=== PATIENT | female | born 1995 | race Caucasian/White ===

== ENCOUNTER 2020-04-13 17:44 | Emergency (ER) | payer MEDICAID, SELFPAY ==
--- NOTE | ~2020-04-13 | US_ITS ---
EXAMINATION: US pelvic complete w TV DATE: 04/13/2020 21:12 INDICATION: Left lower quadrant pain TECHNIQUE: Multiple transabdominal and endovaginal sonographic images of the pelvis were obtained. COMPARISON: None. FINDINGS: The uterus measures 7 x 4.6 x 3.5 cm. The endometrial complex measures 3 mm. The right ovar y measures 2.6 x 2.1 x 2.1 cm. The left ovary measures 3.2 x 2.2 x 2.0 cm. There is normal vascular f low in the ovaries. There is no free fluid in the pelvis. IMPRESSION: 1. No sonographic correlate for the patient's symptoms. Reviewed, dictated and finalized at location A. STRIAL RELATIONS SPECIALIST
[2020-04-13 18:05] VITALS: BP 107/90; PULSE 77; RESP 16; TEMP 36.2; O2SAT 100
[2020-04-13 19:31] VITALS: BP 121/89; O2SAT 100
--- NOTE | 2020-04-13 19:44 | ED.ABDPAIN ---
HPI - Abdominal Pain General Chief Complaint: Abdominal Pain Stated Complaint: abd pain Time Seen by Provider: 04/13/20 19:35 Source: patient Mode of arrival: ambulatory Limitations: no limitations History of Present Illness HPI narrative: This is a 24 year old female that presents to the ER for left sided pelvic pain since yesterday. Reports she started her cycle yesterday. Reports she has had cramping on the left side of her pelvis. Denies fever, nausea, vomiting, or dysuria. Related Data Allergies Allergy/AdvReac Type Severity Reaction Status Date / Time No Known Allergies Allergy Unverified 06/08/18 09:04 Review of Systems Review of Systems: Narrative: CONSTITUTIONAL: Denies fever GASTROINTESTINAL: Reports abdominal/pelvic pain. Denies nausea, vomiting, or diarrhea. GENITOURINARY: Denies dysuria or hematuria. SKIN: Denies rash All systems reviewed & are unremarkable except as noted in HPI and below PMFSH Past Medical History Medical History (Updated 04/13/20 @ 21:47 by Patricia Jones PA-C) History of bipolar disorder Social History Social History (Updated 04/13/20 @ 19:47 by Patricia Jones PA-C) Smoking status: Former smoker Gender identity (if verbalized by the patient): Female Exam Narrative: Exam Narrative: GENERAL: Well-appearing, well-nourished, and in no acute distress. HEAD: Normocephalic, atraumatic. EYES: EOMI. CHEST: Clear to auscultation. No respiratory distress. No wheezes rales or rhonchi HEART: Regular rate and rhythm. No murmur heard. Normal peripheral pulses. ABDOMEN: Soft, nondistended, normal active bowel sounds. Tender to palpation in the left lower quadrant, without guarding. No CVA tenderness EXTREMITIES: Normal range of motion. No edema. SKIN: Warm, dry, no rash. NEURO: No focal deficits. Alert and oriented x3. PSYCH: Normal mood and affect PELVIC: Normal external genitalia. Normal-appearing cervix, no cervical motion tenderness. Small amount of blood in the vaginal vault Course Vital Signs Vital signs: Vital Signs Temperature 97.1 F L 04/13/20 18:05 Pulse Rate 77 04/13/20 18:05 Respiratory Rate 16 04/13/20 18:05 Blood Pressure 107/90 04/13/20 18:05 Pulse Oximetry 100 04/13/20 18:05 Temperature 97.1 F L 04/13/20 18:05 Pulse Rate 77 04/13/20 18:05 Respiratory Rate 16 04/13/20 18:05 Blood Pressure 121/89 04/13/20 19:31 Pulse Oximetry 100 04/13/20 19:31 MDM - Abdominal Pain MDM Narrative Medical decision making narrative: Patient presents emergency department for left-sided pelvic pain since yesterday. She is afebrile and nontoxic-appearing. CBC is without leukocytosis. Metabolic panel without concerning findings. Bedside test is negative. UA with possible evidence of infection although this is not a clean-catch. This will be sent for culture. Trichomonas is negative. Chlamydia and gonorrhea are sent. No acute findings on pelvic exam. Pelvic ultrasound is also without acute abnormalities. Normal vascular flow to the ovaries. Patient was updated on case findings. Would like to be presumptively treated for chlamydia and gonorrhea. She is stable and felt appropriate for the outpatient evaluation. Was instructed to follow-up with her low vision therapist. She was given warnings to return to the ER Lab Data Attestation: I reviewed the patient's lab results. Result diagrams: 04/13/20 19:50 04/13/20 19:50 Labs: Lab Results 04/13/20 04/13/20 04/13/20 Range/Units 19:50 19:50 19:50 WBC 7.3 (4.5-10.0) K/mm3 RBC 4.33 (4.2-5.4) M/mm3 Hgb 13.7 (12.0-15.0) g/dL Hct 40.1 (37.0-47.0) % MCV 92.6 (80-100) fl MCH 31.6 (26-34) pg MCHC 34.2 (32-36) g/dl RDW 11.9 (11.5-14.5) % Plt Count 212 (150-375) k/mm3 MPV 11.1 H (7.4-10.4) fl Immature Gran % (Auto) 0.4 (0-0.5) % Neut % (Auto) 65.2 (45.5-73.1) % Lymph % (Auto) 24.8 (18.3-44.2) % [place] %
[2020-04-13 19:58] LABS: Basophils Percent Auto 0.6 % (0.2-1.2); Eosinophils Absolute Auto 0.1 K/mm3 (0-0.3); Eosinophils Percent Auto 1.1 % (0-4.4); Hematocrit 40.1 % (37.0-47.0); Hemoglobin 13.7 g/dL (12.0-15.0); Immature Granulocyte Absolute 0.03 K/mm3 (0.00-0.031); Immature Granulocyte Percent A 0.4 % (0-0.5); Lymphocytes Percent Auto 24.8 % (18.3-44.2); Mean Corpuscular HGB Conc 34.2 g/dl (32-36); Mean Corpuscular Hemoglobin 31.6 pg (26-34); Mean Corpuscular Volume 92.6 fl (80-100); Mean Platelet Volume 11.1 fl (7.4-10.4); Monocytes Absolute Auto 0.6 K/mm3 (0.1-0.6); Monocytes Percent Auto 7.9 % (2.6-8.5); Neutrophils Absolute Auto 4.7 K/mm3 (1.3-6.7); Neutrophils Percent Auto 65.2 % (45.5-73.1); Platelet Count Result 212 k/mm3 (150-375); Red Blood Count 4.33 M/mm3 (4.2-5.4); Red Cell Distribution Width 11.9 % (11.5-14.5); White Blood Count 7.3 K/mm3 (4.5-10.0)
[2020-04-13 20:02] LABS: Add Urine Microscopic? YES; Amorphous Sediment Urine Few; Appearance Urine Cloudy (Clear); Bilirubin Urine Negative (Negative); Blood Urine 3+ (Negative); Glucose Urine UA Negative (Negative); Ketones Urine Negative (Negative); Leukocyte Esterase Ur 1+ LEU/UL (Negative); Nitrate Urine Negative (Negative); Protein Urine 1+ mg/dL (Negative); Specific Grav Ur 1.029 (1.001-1.035); Squamous Epithelial Cell Urine Many /hpf (Few); Urobilinogen Urine Negative mg/dL (<2.0); WBC Urine 21-30 /hpf
[2020-04-13 20:03] LABS: Color Urine Yellow (Yellow)
[2020-04-13 20:10] LABS: Alanine Aminotransferase 15 U/L (4-35); Albumin Level 4.6 g/dL (3.5-5.1); Alkaline Phosphatase 49 U/L (38-126); Anion Gap 5 mmol/L (8-16); Aspartate Amino Transferase 26 U/L (14-36); Bilirubin,Total 0.4 mg/dL (0.2-1.3); Blood Urea Nitrogen 13 mg/dL (7-17); Calcium 9.6 mg/dL (8.4-10.2); Carbon Dioxide 30 mmol/L (22-30); Chloride 102 mmol/L (98-107); Estimated CRCL calculation 122 ml/min; Estimated Glomerular Filt Rate > 60; Glucose 94 mg/dL (65-105); Lipase 105 U/L (23-300); Sodium 137 mmol/L (137-145)
[2020-04-13 20:26] LABS: Beta HCG Quantitative < 2.39 mIU/ML
[2020-04-13] MEDS: DOXYCYCLINE HYCLATE 100 MG TABLET PO (22:16)
--- NOTE | 2020-04-13 22:16 | PC.NURSE ---
vrbo to give pt 1gm rocephin iv x1 from abel jimenez
[2020-04-13 22:18] VITALS: BP 132/84; PULSE 84; RESP 18; O2SAT 98
== END 2020-04-13 22:19 | disposition home or self-care (01) ==
PROVIDERS: Physician Assistant; Emergency Provider Emergency Medicine
DX: N30.01 Acute cystitis with hematuria (principal); R10.2 Pelvic and perineal pain; Z87.891 Personal history of nicotine dependence
CPT/HCPCS: 36415; 76830; 76856; 80053; 81001; 81025; 83690; 84702; 85025; 87070; 87086; 87088; 87491; 87591; 87808; 96374; 96375; 99284; A9270; J0131; J0696

== ENCOUNTER 2020-06-01 22:33 | Emergency (ER) | payer BC, SELFPAY ==
--- NOTE | ~2020-06-01 | CT_ITS ---
EXAMINATION: CT abdomen pelvis w con DATE: 06/02/2020 00:54 INDICATION: Abdominal pain. TECHNIQUE: Computed tomography (CT) of the abdomen and pelvis was performed with 100 mL Omnipaque 350 intravenous contrast. Automated exposure control and iterative reconstruction technique were employe d. The dose-length product was 221.35 mGy-cm. COMPARISON: None. FINDINGS: The visualized portions of the lung bases are clear without pneumonia or pleural effusion. The heart size is normal. No pericardial effusion. The liver, gallbladder, spleen, pancreas, adrenal glands, and right kidney are normal. There is a 4 mm cyst in left kidney. There are no dilated loops of bowel. The appendix is normal. There is trace pelvic ascites, likely physiologic. There are no pat hologically enlarged lymph nodes. There is dextrocurvature of thoracolumbar spine. IMPRESSION: 1. No etiology for the patient's symptoms. Reviewed, dictated and finalized at location A. Y EQUIPMENT SERVICE MANAGER
[2020-06-01 22:35] VITALS: BP 119/79; PULSE 91; RESP 20; TEMP 36.1; O2SAT 100
[2020-06-01 22:50] VITALS: BP 128/77; PULSE 79; RESP 18; O2SAT 100
[2020-06-02] VITALS: BP 124/77; PULSE 80; RESP 18; O2SAT 100
[2020-06-02 00:14] LABS: Prothrombin Time 13.6 Seconds (11.1-14.7)
[2020-06-02 00:15] LABS: Alanine Aminotransferase 14 U/L (4-35); Albumin Level 4.7 g/dL (3.5-5.1); Alkaline Phosphatase 45 U/L (38-126); Anion Gap 7 mmol/L (8-16); Aspartate Amino Transferase 19 U/L (14-36); Bilirubin,Total 0.3 mg/dL (0.2-1.3); Blood Urea Nitrogen 11 mg/dL (7-17); Calcium 9.4 mg/dL (8.4-10.2); Carbon Dioxide 28 mmol/L (22-30); Chloride 105 mmol/L (98-107); Estimated CRCL calculation 103 ml/min; Estimated Glomerular Filt Rate > 60; Glucose 84 mg/dL (65-105); Lipase 151 U/L (23-300); Partial Thromboplastin Time 29.3 SECONDS (22.3-36.8); Potassium 3.7 mmol/L (3.4-5.0); Sodium 140 mmol/L (137-145)
[2020-06-02 00:20] LABS: Basophils Percent Auto 0.4 % (0.2-1.2); Eosinophils Percent Auto 0.5 % (0-4.4); Hematocrit 40.7 % (37.0-47.0); Hemoglobin 13.8 g/dL (12.0-15.0); Immature Granulocyte Absolute 0.05 K/mm3 (0.00-0.031); Immature Granulocyte Percent A 0.6 % (0-0.5); Lymphocytes Absolute Auto 2.06 K/mm3 (0.9-3.2); Lymphocytes Percent Auto 26.7 % (18.3-44.2); Mean Corpuscular HGB Conc 33.9 g/dl (32-36); Mean Corpuscular Hemoglobin 30.8 pg (26-34); Mean Corpuscular Volume 90.8 fl (80-100); Mean Platelet Volume 11.5 fl (7.4-10.4); Monocytes Absolute Auto 0.7 K/mm3 (0.1-0.6); Monocytes Percent Auto 8.7 % (2.6-8.5); Neutrophils Absolute Auto 4.9 K/mm3 (1.3-6.7); Neutrophils Percent Auto 63.1 % (45.5-73.1); Platelet Count Result 198 k/mm3 (150-375); Red Blood Count 4.48 M/mm3 (4.2-5.4); Red Cell Distribution Width 11.6 % (11.5-14.5); White Blood Count 7.7 K/mm3 (4.5-10.0)
[2020-06-02] MEDS: SODIUM CHLORIDE 0.9% IV 1,000 ML 999 ML IV CONT (00:28)
[2020-06-02 01:31] VITALS: BP 120/80; PULSE 71; RESP 16; O2SAT 100
--- NOTE | 2020-06-02 02:32 | ED.GENADULT ---
HPI - General Adult General Chief complaint: GI Bleed Stated complaint: bloody stool Time Seen by Provider: 06/01/20 23:17 History of Present Illness HPI narrative: Patient is a 22-year-old female presents the emergency department chief complaint of rectal bleeding. Patient reports that she has noticed over the last several days that she has had some blood mixed in with her stool. Patient reports a little bit of diarrhea with this denies abdominal pain. Patient has noticed at times her stool can be fairly hard the patient reports that she had some prior issues with this before in the past but has not seen a safety fire boss or had further evaluation. Related Data Allergies Allergy/AdvReac Type Severity Reaction Status Date / Time No Known Allergies Allergy Unverified 06/08/18 09:04 Review of Systems Review of Systems: Narrative: A 10 system review of systems was completed on the patient and is negative except for what is stated in the HPI. Nursing and ancillary documentation was reviewed. [facility] Past Medical History Medical History History of bipolar disorder Social History Social History Smoking status: Former smoker Gender identity (if verbalized by the patient): Female Exam Narrative: Exam Narrative: GENERAL: Well-appearing, well-nourished, and in no acute distress. HEAD: Normocephalic, atraumatic. EYES: PERRLA and EOMI. ENT: Nares clear, no rhinorrhea or epistaxis. Mucous membranes moist. NECK: Supple. CHEST: Clear to auscultation. No respiratory distress. HEART: Regular rate and rhythm. No murmur heard. Normal peripheral pulses. ABDOMEN: Soft, nontender, nondistended, normal active bowel sounds. EXTREMITIES: Normal range of motion. No edema. : Stool is guaiac positive SKIN: Warm, dry, no rash. NEURO: No focal deficits. Alert and oriented x3. PSYCH: Normal mood and affect. Course Vital Signs Vital signs: Vital Signs Temperature 36.1 C L 06/01/20 22:35 Pulse Rate 91 06/01/20 22:35 Respiratory Rate 20 06/01/20 22:35 Blood Pressure 119/79 06/01/20 22:35 Pulse Oximetry 100 06/01/20 22:35 Temperature 36.1 C L 06/01/20 22:35 Pulse Rate 71 06/02/20 01:31 Respiratory Rate 16 06/02/20 01:31 Blood Pressure 120/80 06/02/20 01:31 Pulse Oximetry 100 06/02/20 01:31 Medical Decision Making Vital Signs Vital Signs: Vital Signs Temperature 36.1 C L 06/01/20 22:35 Pulse Rate 91 06/01/20 22:35 Respiratory Rate 20 06/01/20 22:35 Blood Pressure 119/79 06/01/20 22:35 Pulse Oximetry 100 06/01/20 22:35 Temperature 36.1 C L 06/01/20 22:35 Pulse Rate 71 06/02/20 01:31 Respiratory Rate 16 06/02/20 01:31 Blood Pressure 120/80 06/02/20 01:31 Pulse Oximetry 100 06/02/20 01:31 Lab Data Result diagrams: 06/01/20 23:57 06/01/20 23:57 Labs: Lab Results 06/01/20 06/01/20 06/01/20 Range/Units 23:57 23:57 23:57 WBC 7.7 (4.5-10.0) K/mm3 RBC 4.48 (4.2-5.4) M/mm3 Hgb 13.8 (12.0-15.0) g/dL Hct 40.7 (37.0-47.0) % MCV 90.8 (80-100) fl MCH 30.8 (26-34) pg MCHC 33.9 (32-36) g/dl RDW 11.6 (11.5-14.5) % Plt Count 198 (150-375) k/mm3 MPV 11.5 H (7.4-10.4) fl Immature Gran % (Auto) 0.6 H (0-0.5) % Neut % (Auto) 63.1 (45.5-73.1) % Lymph % (Auto) 26.7 (18.3-44.2) % [place] % (Auto) 8.7 H (2.6-8.5) % Eos % (Auto) 0.5 (0-4.4) % Baso % (Auto) 0.4 (0.2-1.2) % Lymph # (Auto) 2.06 (0.9-3.2) K/mm3 [place] # (Auto) 0.7 H (0.1-0.6) K/mm3 Eos # (Auto) 0.0 (0-0.3) K/mm3 Baso # (Auto) 0.0 (0.0-0.1) K/mm3 Abs Immat Gran (auto) 0.05 H (0.00-0.031) K/mm3 Absolute Neuts (auto) 4.9 (1.3-6.7) K/mm3 Absolute Nucleated RBC 0.0 (0.0-0.012) K/mm3 Nucleated RBC % 0.0 (0.0-0.2) % PT 13.6 (11.1-14.7)
[2020-06-02 02:53] VITALS: BP 114/72; PULSE 79; RESP 14; O2SAT 100
== END 2020-06-02 02:54 | disposition home or self-care (01) ==
PROVIDERS: Emergency Provider Emergency Medicine
DX: K62.5 Hemorrhage of anus and rectum (principal); Z87.891 Personal history of nicotine dependence
CPT/HCPCS: 36415; 74177; 80053; 81025; 83690; 85025; 85610; 85730; 96360; 99284; J7030; Q9967

== ENCOUNTER 2022-07-10 09:30 | Emergency (ER) | payer SELFPAY ==
--- NOTE | 2022-07-10 10:04 | ED.FEMALEGU ---
HPI - Female Genitourinary General Chief complaint: Urogenital-Female Stated complaint: STD testing, diarrhea x 4 days Time Seen by Provider: 07/10/22 09:43 Source: patient Mode of arrival: ambulatory Limitations: no limitations History of Present Illness HPI Narrative: Patient is a 26 y/o female who presents to the ED with c/o concern for STDs. Patient reports she had sexual intercourse with a partner who was noted to have chlamydia and trichomonas. She reports having intercourse with him on 2 separate occasions, most recently a couple of weeks ago. Starting this Thursday, patient began developing abnormal vaginal discharge, thick, white, increased amount. Somewhat malodorous. She also reports having diarrhea intermittently. Patient would like to be tested and treated for STDs. Denies any dysuria, hematuria, vaginal bleeding, abdominal pain, nausea, vomiting, fevers, rectal bleeding, melena. Related Data Home Medications Medication Instructions Recorded Confirmed aripiprazole 15 mg tablet mg 07/10/22 hydroxyzine HCl 25 mg tablet 25 mg PO DAILY 07/10/22 trazodone 100 mg tablet 100 mg PO HS 07/10/22 Allergies Allergy/AdvReac Type Severity Reaction Status Date / Time muscle relaxer Allergy Seizure Uncoded 07/10/22 09:34 Review of Systems Review of Systems: CONSTITUTIONAL: Denies fever, chills, or sweats. CARDIOVASCULAR: Denies chest pain. RESPIRATORY: Denies dyspnea. GASTROINTESTINAL: See HPI. GENITOURINARY: See HPI. SKIN: Denies rash or itching. All systems reviewed & are unremarkable except as noted in HPI and below PMFSH Past Medical History Medical History History of bipolar disorder Surgical History Surgical History No pertinent past surgical history Social History Social History Smoking status: Former smoker Gender identity (if verbalized by the patient): Female Exam Narrative: GENERAL: Well appearing, well-nourished, non-toxic, in no acute distress. HEAD: Normocephalic, atraumatic. NECK: Supple. No adenopathy, no masses. RESPIRATORY: Airway patent, respirations nonlabored. Clear to auscultation bilaterally, no rales, rhonchi, wheezing. CARDIOVASCULAR: Regular rate and rhythm without murmurs, rubs, or gallops. Radial pulses 2+ and equal bilaterally. ABDOMINAL: Soft, no tenderness throughout abdomen, nondistended, no hepatosplenomegaly. Normoactive BS. PELVIC: Normal external genitalia. No genital lesions. Friable cervix, os closed, otherwise normal appearing. Mild amount of thick white vaginal discharge, no significant odor. No bleeding. No significant CMT. MUSCULOSKELETAL: Moves all extremities. Strength/ROM intact without gross deformities. SKIN: Warm, dry, normal color. No rashes. NEURO: A&O X3. Speech clear. Cranial nerves II-XII grossly intact. Steady gait. No ataxic movements. PSYCHIATRIC: Appropriate mood and affect. Normal interaction. Course Vital Signs Vital signs: Vital Signs Respiratory Rate 16 07/10/22 10:13 Blood Pressure 110/75 07/10/22 10:13 Pulse Oximetry 96 07/10/22 10:13 Oxygen Delivery Room Air 07/10/22 10:13 Temperature 97.6 F 07/10/22 10:50 Pulse Rate 67 07/10/22 12:18 Respiratory Rate 16 07/10/22 12:18 Blood Pressure 111/74 07/10/22 12:18 Pulse Oximetry 100 07/10/22 12:18 Oxygen Delivery Room Air 07/10/22 10:13 MDM - Female Genitourinary MDM Narrative Medical decision making narrative: Patient presented to ED with exposure to STDs. Wanting to be tested and treated. Pelvic exam performed and notable for thick white vaginal discharge, no other significant abnormalities. Patient without any abdominal tenderness on exam. No systemic signs of infection. UA consistent with infection as well, 2+ leuk esterase, 51-100 WBC. Sent for culture. Swabs
[2022-07-10 10:13] VITALS: BP 110/75; RESP 16; O2SAT 96
[2022-07-10] MEDS: metroNIDAZOLE 250 MG TABLET 500 MG PO (10:40)
[2022-07-10] MEDS: DOXYCYCLINE HYCLATE 100 MG TABLET PO (10:40)
[2022-07-10] MEDS: cefTRIAXone 1 GM VIAL 0.5 GM IM (10:41)
[2022-07-10] MEDS: LIDOCAINE HCL 1% LOCAL INJ 10 ML VIAL (10:45)
[2022-07-10 10:50] VITALS: BP 110/75; PULSE 82; RESP 16; TEMP 36.4; O2SAT 98
[2022-07-10 11:02] LABS: Appearance Urine Cloudy (Clear); Bacteria Urine Rare /hpf; Bilirubin Urine Negative (Negative); Blood Urine Negative (Negative); Color Urine Yellow (Yellow); Glucose Urine UA Negative (Negative); Ketones Urine Negative (Negative); Leukocyte Esterase Ur 2+ LEU/UL (Negative); Nitrate Urine Negative (Negative); Non Pathogenic Casts 0-2; Protein Urine Negative (Negative); RBC Urine 0-2 /hpf (0-2); Specific Grav Ur 1.023 (1.001-1.035); Squamous Epithelial Cell Urine Occasional /hpf (Few); Urobilinogen Urine 0.2 mg/dL (<2.0); WBC Urine 51-100 /hpf
[2022-07-10 12:01] LABS: Add Urine Microscopic? YES
[2022-07-10 12:18] VITALS: BP 111/74; PULSE 67; RESP 16; O2SAT 100
== END 2022-07-10 12:26 | disposition home or self-care (01) ==
PROVIDERS: Emergency Provider Physician Assistant; PCP Physician Assistant
DX: Z20.2 Contact with and (suspected) exposure to infections with a predominantly sexual mode of transmission (principal); N30.00 Acute cystitis without hematuria; F31.9 Bipolar disorder, unspecified; Z87.891 Personal history of nicotine dependence
CPT/HCPCS: 81001; 81025; 87070; 87086; 87088; 87491; 87591; 87808; 96372; 99284; A9270; J0696

== ENCOUNTER 2022-07-16 01:01 | Emergency (ER) | payer SELFPAY ==
--- NOTE | 2022-07-16 01:25 | ED.GENADULT ---
HPI - General Adult General Chief complaint: Abdominal Pain Stated complaint: vomiting Time Seen by Provider: 07/16/22 01:13 History of Present Illness HPI narrative: This is a 26-year-old female presenting ED with chief complaint of nausea vomiting diarrhea. Her symptoms started at 7:00 p.m. today. She denies fever chills URI symptoms chest pain difficulty breathing or abdominal pain. Patient is on day 5 of STD/UTI treatment. Patient is not taking any medication for vomiting. She has not drink any alcohol. Related Data Home Medications Medication Instructions Recorded Confirmed aripiprazole 15 mg tablet mg 07/10/22 hydroxyzine HCl 25 mg tablet 25 mg PO DAILY 07/10/22 trazodone 100 mg tablet 100 mg PO HS 07/10/22 Allergies Allergy/AdvReac Type Severity Reaction Status Date / Time muscle relaxer Allergy Seizure Uncoded 07/16/22 02:01 [facility] Past Medical History Medical History History of bipolar disorder Surgical History Surgical History No pertinent past surgical history Social History Social History Smoking status: Former smoker Gender identity (if verbalized by the patient): Female Exam Narrative: APPEARANCE: No apparent distress. Head: atraumatic. EYES: EOMI, NOSE: Atraumatic NECK: Trachea midline RESPIRATORY: No increased rate of breathing , clear to auscultation CARDIOVASCULAR: RRR, oral edema ABDOMINAL: Non-distended, soft no guarding or rebound MUSCULOSKELETAl: No obvious deformities NEURO: Alert. Moving 4/4 extremities SKIN:: Warm, dry. Normal color PSYCHIATRIC: Normal affect Medical Decision Making MDM Narrative Medical decision making narrative: -Presentation: 26-year-old female presenting with 6 hours of nausea vomiting diarrhea. -DDX includes but is not limited to: Gastroenteritis, cyclic vomiting, medication side effect, viral syndrome -Co-morbidities complicating care: bipolar treatment, recent gonorrhea infection, UTI -Social determinants of health: patient works at [employer], lives with her aunt -External Chart Review: previous ER records -Hx from independent Sources: none -Discussion of Management/Consultants: none -Independent interpretation of studies: laboratory studies were within normal limits. Urinalysis was not indicative of infection. Dx tests considered but not ordered: None -Procedures: none -Interventions: 2 L normal saline, Haldol, Zofran, Pepcid -Shared decision making / Disposition: upon re-evaluation patient is feeling better. Vital signs are stable. She is tolerating p.o.. She will be discharged with anti-emetics/ PCP follow-up -RX Zofran, Lab Data 07/16/22 01:55 07/16/22 01:55 Labs: Lab Results 07/16/22 Range/Units 01:55 WBC 7.1 (4.5-10.0) K/mm3 RBC 4.16 L (4.2-5.4) M/mm3 Hgb 12.9 (12.0-15.0) g/dL Hct 38.5 (37.0-47.0) % MCV 92.5 (80-100) fl MCH 31.0 (26-34) pg MCHC 33.5 (32-36) g/dl RDW 12.4 (11.5-14.5) % Plt Count 193 (150-375) k/mm3 MPV 11.8 H (7.4-10.4) fl Immature Gran % (Auto) 0.4 (0-0.5) % Neut % (Auto) 81.1 H (45.5-73.1) % Lymph % (Auto) 11.9 L (18.3-44.2) % [place] % (Auto) 5.1 (2.6-8.5) % Eos % (Auto) 0.9 (0-4.4) % Baso % (Auto) 0.6 (0.2-1.2) % Lymph # (Auto) 0.84 L (0.9-3.2) K/mm3 [place] # (Auto) 0.4 (0.1-0.6) K/mm3 Eos # (Auto) 0.1 (0-0.3) K/mm3 Baso # (Auto) 0.0 (0.0-0.1) K/mm3 Abs Immat Gran (auto) 0.03 (0.00-0.031) K/mm3 Absolute Neuts (auto) 5.7 (1.3-6.7) K/mm3 Absolute Nucleated RBC 0.0 (0.0-0.012) K/mm3 Nucleated RBC % 0.0 (0.0-0.2) % Sodium 137 (137-145) mmol/L Potassium 3.8 (3.4-5.0) mmol/L Chloride 104 (98-107) mmol/L Carbon Dioxide 27 (22-30) mmol/L Anion Gap 6 L (8-16) mmol/L BUN 7 (7-17) mg/dL Creatinine
[2022-07-16] MEDS: ONDANSETRON INJ 4 MG/2 ML VIAL 8 MG IV PUSH (02:01)
[2022-07-16] MEDS: FAMOTIDINE 20 MG/2 ML VIAL IV PUSH (02:01)
[2022-07-16] MEDS: SODIUM CHLORIDE 0.9% IV 2,000 ML 999 ML IV CONT (02:02)
[2022-07-16] MEDS: HALOPERIDOL LACTATE 5 MG/ML VIAL IM (02:23)
[2022-07-16 02:26] LABS: Basophils Percent Auto 0.6 % (0.2-1.2); Eosinophils Absolute Auto 0.1 K/mm3 (0-0.3); Eosinophils Percent Auto 0.9 % (0-4.4); Hematocrit 38.5 % (37.0-47.0); Hemoglobin 12.9 g/dL (12.0-15.0); Immature Granulocyte Absolute 0.03 K/mm3 (0.00-0.031); Immature Granulocyte Percent A 0.4 % (0-0.5); Lymphocytes Absolute Auto 0.84 K/mm3 (0.9-3.2); Lymphocytes Percent Auto 11.9 % (18.3-44.2); Mean Corpuscular HGB Conc 33.5 g/dl (32-36); Mean Corpuscular Volume 92.5 fl (80-100); Mean Platelet Volume 11.8 fl (7.4-10.4); Monocytes Absolute Auto 0.4 K/mm3 (0.1-0.6); Monocytes Percent Auto 5.1 % (2.6-8.5); Neutrophils Absolute Auto 5.7 K/mm3 (1.3-6.7); Neutrophils Percent Auto 81.1 % (45.5-73.1); Platelet Count Result 193 k/mm3 (150-375); Red Blood Count 4.16 M/mm3 (4.2-5.4); Red Cell Distribution Width 12.4 % (11.5-14.5); White Blood Count 7.1 K/mm3 (4.5-10.0)
[2022-07-16 02:35] LABS: Alanine Aminotransferase 24 U/L (6-35); Albumin Level 4.3 g/dL (3.5-5.1); Alkaline Phosphatase 38 U/L (38-126); Anion Gap 6 mmol/L (8-16); Aspartate Amino Transferase 25 U/L (14-36); Bilirubin,Total 0.5 mg/dL (0.2-1.3); Blood Urea Nitrogen 7 mg/dL (7-17); Calcium 9.2 mg/dL (8.4-10.2); Carbon Dioxide 27 mmol/L (22-30); Chloride 104 mmol/L (98-107); Estimated Glomerular Filt Rate > 60; Glucose 121 mg/dL (65-110); Lipase 84 U/L (23-300); Magnesium 1.9 mg/dL (1.6-2.3); Potassium 3.8 mmol/L (3.4-5.0); Sodium 137 mmol/L (137-145)
== END 2022-07-16 05:19 | disposition home or self-care (01) ==
PROVIDERS: Emergency Provider Emergency Medicine; PCP Physician Assistant
DX: R11.2 Nausea with vomiting, unspecified (principal); F31.9 Bipolar disorder, unspecified; Z87.891 Personal history of nicotine dependence
CPT/HCPCS: 36415; 80053; 83690; 83735; 85025; 96361; 96372; 96374; 96375; 99284; J1630; J2405; J7030

== ENCOUNTER 2022-07-22 16:38 | Emergency (ER) | payer SELFPAY ==
[2022-07-22 16:41] VITALS: BP 147/87; PULSE 80; RESP 18; TEMP 36.2; O2SAT 100
--- NOTE | 2022-07-22 17:01 | PC.NURSE ---
pt ambulatory to intake desk and states she has to leave for an emergency text she just received. pt ambulatory out of ED.
== END 2022-07-22 17:30 | disposition left against medical advice (07) ==
LOC: ANHED 17:11
PROVIDERS: PCP Physician Assistant
DX: A54.9 Gonococcal infection, unspecified (principal)
CPT/HCPCS: 99199

== ENCOUNTER 2022-07-28 12:51 | Emergency (ER) | payer MEDICAID, SELFPAY ==
[2022-07-28 13:08] VITALS: BP 127/62; PULSE 100; RESP 16; TEMP 36.2; O2SAT 98
--- NOTE | 2022-07-28 13:20 | ED.FEMALEGU ---
HPI - Female Genitourinary General Chief complaint: Urogenital-Female Stated complaint: needs gonorrhea shot Time Seen by Provider: 07/28/22 13:14 History of Present Illness HPI Narrative: 26-year-old female presents with vaginal discharge x5 days. Patient states she presented to the ER 3 days ago and was tested for STDs. Patient was called by health department today and said she tested positive for gonorrhea but was not treated for gonorrhea. Patient denies abdominal pain or fevers. Patient denies any other complaints Onset (ago): day(s) (5) Vaginal discharge: yellow and vaginal odor Related Data Home Medications Medication Instructions Recorded Confirmed aripiprazole 15 mg tablet mg 07/10/22 hydroxyzine HCl 25 mg tablet 25 mg PO DAILY 07/10/22 trazodone 100 mg tablet 100 mg PO HS 07/10/22 Allergies Allergy/AdvReac Type Severity Reaction Status Date / Time muscle relaxer Allergy Seizure Uncoded 07/28/22 13:12 Review of Systems Review of Systems: A 10 system review of systems was completed on the patient and is negative except for what is stated in the HPI. Nursing and ancillary documentation was reviewed. [facility] Past Medical History Medical History History of bipolar disorder Surgical History Surgical History No pertinent past surgical history Social History Social History Smoking status: Former smoker Gender identity (if verbalized by the patient): Female Exam Narrative: GENERAL: Well-appearing, well-nourished, and in no acute distress. HEAD: Normocephalic, atraumatic. EYES: PERRLA and EOMI. ENT: Nares clear, no rhinorrhea or epistaxis. Mucous membranes moist. NECK: Supple. CHEST: Clear to auscultation. No respiratory distress. HEART: Regular rate and rhythm. No murmur heard. Normal peripheral pulses. ABDOMEN: Soft, nontender, nondistended, normal active bowel sounds. EXTREMITIES: Normal range of motion. No edema. SKIN: Warm, dry, no rash. NEURO: No focal deficits. Alert and oriented x3. PSYCH: Normal mood and affect. Course Course Emergency Course: Patient already had full STD panel 3 days ago. We will treat for gonorrhea with IM Rocephin. Vital Signs Vital signs: Vital Signs Temperature 36.2 C L 07/28/22 13:08 Pulse Rate 100 07/28/22 13:08 Respiratory Rate 16 07/28/22 13:08 Blood Pressure 127/62 07/28/22 13:08 Pulse Oximetry 98 07/28/22 13:08 Temperature 36.2 C L 07/28/22 13:08 Pulse Rate 100 07/28/22 13:08 Respiratory Rate 16 07/28/22 13:08 Blood Pressure 127/62 07/28/22 13:08 Pulse Oximetry 98 07/28/22 13:08 MDM - Female Genitourinary MDM Narrative Medical decision making narrative: We will treat for gonorrhea with IM Rocephin Discharge Plan Discharge Clinical Impression: Gonorrhea, Vaginal discharge Patient Disposition: Home, Self-Care Condition: Stable Instructions: Antibiotic Form, Gonorrhea (ED) Additional Instructions: Prevent him from having unprotected sex x1 week. Return for any worsening symptoms Prescriptions: No Action doxycycline monohydrate 100 mg tablet 100 mg PO BID 7 Days Qty: 14 0RF hydroxyzine HCl 25 mg Tablet 25 mg PO DAILY metronidazole 500 mg tablet 500 mg PO BID 7 Days Qty: 14 0RF trazodone 100 mg Tablet 100 mg PO HS aripiprazole 15 mg tablet cephalexin 500 mg capsule 500 mg PO Q6H 5 Days Qty: 20 0RF ondansetron 4 mg tablet,disintegrating 4 mg PO Q8H PRN (Reason: nausea and vomiting) Qty: 30 0RF doxycycline hyclate 100 mg capsule 100 mg PO BID 7 Days Qty: 14 0RF Follow-up/Referrals: Cesar,RAIMUNDO Neville [Primary Care Provider] - 1 Week (As needed) Time of Disposition: 13:24
[2022-07-28] MEDS: LIDOCAINE HCL 1% LOCAL INJ 10 ML VIAL (13:24)
[2022-07-28] MEDS: cefTRIAXone 1 GM VIAL 0.5 GM IM (13:24)
== END 2022-07-28 14:24 | disposition home or self-care (01) ==
LOC: ANHED 14:03
PROVIDERS: Emergency Provider Nurse Practitioner Family; PCP Physician Assistant
DX: A54.9 Gonococcal infection, unspecified (principal); N89.8 Other specified noninflammatory disorders of vagina; F31.9 Bipolar disorder, unspecified
CPT/HCPCS: 96372; 99283; J0696

== ENCOUNTER 2022-08-18 11:24 | Emergency (ER) | payer MEDICAID, SELFPAY ==
[2022-08-18 11:31] VITALS: BP 110/62; PULSE 76; RESP 16; TEMP 36.5; O2SAT 100
--- NOTE | 2022-08-18 12:11 | ED.GENADULT ---
HPI - General Adult General Chief complaint: Upper Respiratory Infection Stated complaint: sinus infection Time Seen by Provider: 08/18/22 12:00 History of Present Illness HPI narrative: Patient is a 26-year-old female who presents ER with sinus congestion. Ongoing for the last week. Associated with sinus pressure as well as ear pressure. No fevers or chills or sweats. Has postnasal drip and productive cough. No chest pain or chest pressure. No dyspnea. No known sick contacts. Was sent here by her work for evaluation. Related Data Home Medications Medication Instructions Recorded Confirmed aripiprazole 15 mg tablet mg 07/10/22 hydroxyzine HCl 25 mg tablet 25 mg PO DAILY 07/10/22 trazodone 100 mg tablet 100 mg PO HS 07/10/22 Allergies Allergy/AdvReac Type Severity Reaction Status Date / Time muscle relaxer Allergy Seizure Uncoded 08/18/22 11:25 Review of Systems Constitutional: Constitutional: Denies chills, Denies fatigue and Denies fever(s) ENT: Denies dizziness, Reports nasal congestion and Reports sore throat Comments: Ear pressure Cardiovascular: Cardiovascular: Denies chest pain and Denies rapid heart rate Respiratory: Respiratory: Reports cough, Denies dyspnea and Denies wheezing PMFSH Past Medical History Medical History History of bipolar disorder Surgical History Surgical History No pertinent past surgical history Social History Social History Smoking status: Former smoker Gender identity (if verbalized by the patient): Female Exam Narrative: GENERAL: Well-appearing, well-nourished, and in no acute distress. HEAD: Normocephalic, atraumatic. ENT: Mucous membranes moist. TMs normal bilaterally and ear canals free of cerumen. Posterior oropharynx slightly erythematous without postnasal drip. No tonsillar hypertrophy or exudate. Uvula midline and nonedematous. NECK: Supple. CHEST: Clear to auscultation. No respiratory distress. HEART: Regular rate and rhythm. Normal peripheral pulses. NEURO: Alert and oriented x3. PSYCH: Normal mood and affect. Course Course Emergency Course: Discussed diagnosis and treatment plan. Discharged with Mucinex D and nasal saline. No need for antibiotics. Vital Signs Vital signs: Vital Signs Temperature 97.7 F 08/18/22 11:31 Pulse Rate 76 08/18/22 11:31 Respiratory Rate 16 08/18/22 11:31 Blood Pressure 110/62 08/18/22 11:31 Pulse Oximetry 100 08/18/22 11:31 Oxygen Delivery Room Air 08/18/22 11:31 Temperature 97.7 F 08/18/22 11:31 Pulse Rate 76 08/18/22 11:31 Respiratory Rate 16 08/18/22 11:31 Blood Pressure 110/62 08/18/22 11:31 Pulse Oximetry 100 08/18/22 11:31 Oxygen Delivery Room Air 08/18/22 11:31 Medical Decision Making Vital Signs Vital Signs: Vital Signs Temperature 97.7 F 08/18/22 11:31 Pulse Rate 76 08/18/22 11:31 Respiratory Rate 16 08/18/22 11:31 Blood Pressure 110/62 08/18/22 11:31 Pulse Oximetry 100 08/18/22 11:31 Oxygen Delivery Room Air 08/18/22 11:31 Temperature 97.7 F 08/18/22 11:31 Pulse Rate 76 08/18/22 11:31 Respiratory Rate 16 08/18/22 11:31 Blood Pressure 110/62 08/18/22 11:31 Pulse Oximetry 100 08/18/22 11:31 Oxygen Delivery Room Air 08/18/22 11:31 Lab Data Labs: Lab Results 08/18/22 Range/Units 11:48 Influenza A (RT-PCR) Pending Influenza B (RT-PCR) Pending RSV (RT-PCR) Pending SARS-CoV-2 RNA (RT-PCR) Pending Discharge Plan Discharge Clinical Impression: Upper respiratory infection Patient Disposition: Home, Self-Care Condition: Stable Instructions: Upper Respiratory Infection (ED) Additional Instructions: Return to the ER if you cannot breathe, cannot swallow, you cannot keep down food or w
[2022-08-18 12:28] LABS: Influenza A QL RT-PCR Negative (Negative); Influenza B QL RT-PCR Negative (Negative); RSV RNA, RT-PCR Negative (Negative); SARS-CoV-2 RNA PCR Negative (Negative)
== END 2022-08-18 12:26 | disposition home or self-care (01) ==
PROVIDERS: Physician Assistant; Emergency Provider Emergency Medicine; PCP Physician Assistant
DX: J06.9 Acute upper respiratory infection, unspecified (principal); Z20.822 Contact with and (suspected) exposure to COVID-19; F31.9 Bipolar disorder, unspecified; Z87.891 Personal history of nicotine dependence
CPT/HCPCS: 87637; 99283

== ENCOUNTER 2022-09-14 18:33 | Emergency (ER) | payer MEDICAID, SELFPAY ==
[2022-09-14 18:48] VITALS: BP 130/83; PULSE 90; RESP 15; TEMP 36.3; O2SAT 100
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
[2022-09-14] MEDS: ACETAMINOPHEN/ASPIRIN/CAFFEINE 250-250-65 MG TABLET 1 TABLET PO (19:42)
[2022-09-14 19:46] VITALS: BP 100/67; PULSE 72; RESP 16; TEMP 36.6; O2SAT 100
== END 2022-09-14 19:47 | disposition home or self-care (01) ==
LOC: ANHED 19:28
PROVIDERS: Emergency Provider Physician Assistant; PCP Physician Assistant
DX: S06.0X0A Concussion without loss of consciousness, initial encounter (principal); V89.2XXA Person injured in unspecified motor-vehicle accident, traffic, initial encounter; F31.9 Bipolar disorder, unspecified
CPT/HCPCS: 99283; A9270